=== PATIENT | male | born 1955 | race Caucasian/White ===

== ENCOUNTER 2017-06-23 05:00 | Inpatient (IN) ==
[2017-06-23] MEDS ORDERED: 0.9 % Sodium Chloride 1,000 ML IVC ONE (05:31)
[2017-06-23 06:02] LABS: Basophils # 0.1 K/mcL (0.0-0.2); Basophils % 0.4 %; Eosinophils # 0.7 K/mcL (0.0-0.6); Eosinophils % 4.3 %; Hematocrit 43.6 % (37.5-50.1); Hemoglobin 14.4 g/dL (12.9-16.9); Immature Granulocytes % 0.5 % (0-4); Lymphocytes # 2.4 K/mcL (0.6-4.6); Lymphocytes % 15.6 %; Mean Corpuscular Hemoglobin 29.2 pg (28.0-33.3); Mean Corpuscular Volume 88.4 fL (83.0-100.0); Mean Platelet Volume 8.6 fL (9.4-12.4); Monocytes # 1.4 K/mcL (0.0-1.3); Neutrophils # 10.9 K/mcL (1.6-8.9); Platelet Count 270 K/mcL (140-400); Red Blood Count 4.93 M/mcL (4.19-5.50); Red Cell Distribution Width 13.5 % (11.5-14.5); Segmented Neutrophils % 70.2 %
[2017-06-23 06:24] LABS: BUN/Creatinine Ratio 17 (6-26); Blood Urea Nitrogen 17 mg/dL (8-23); Calcium 9.5 mg/dL (8.6-10.3); Carbon Dioxide 27 mEq/L (23-29); Chloride 102 mEq/L (98-107); Glucose 102 mg/dL (70-105); Osmolality,Calculated 286 (280-300); Potassium 4.1 mEq/L (3.5-5.1); Sodium 137 mEq/L (136-145); eGFR For African Americans > 60 (> 60); eGFR For Non-African Americans > 60 (> 60)
[2017-06-23 06:37] LABS: Bilirubin,Urine Negative (Negative); Blood,Urine Negative (Negative); Clarity,Urine Clear (Clear); Color,Urine Yellow (Yellow); Glucose,Urine (UA) Normal (Normal); Ketones,Urine Negative (Negative); Leukocyte Esterase,Urine Negative (Negative); Nitrite,Urine Negative (Negative); Protein,Urine Negative (Neg-Trace); Specific Gravity,Urine 1.024 (1.010-1.025); Urobilinogen,Urine Normal (Normal)
--- NOTE | 2017-06-23 06:54 | Emergency Department Note ---
Disposition Clinical Impression: Leukocytosis Qualifiers: Leukocytosis type: unspecified Qualified Code(s): D72.829 - Elevated white blood cell count, unspecified Upper respiratory infection Qualifiers: URI type: unspecified URI Qualified Code(s): J06.9 - Acute upper respiratory infection, unspecified Disposition: Admitted As Inpatient Condition: Fair Referrals: Cliff Painting DO [Primary Care Provider] - Forms: ED Satisfaction Letter Time of Disposition: 07:23 URI/Sore Throat HPI - General Chief Complaint: ED Shortness of Breath/Dyspnea Stated Complaint: "think I got pneumonia" Time Seen by Provider: 06/23/17 05:31 Source: patient Limitations: no limitations Nursing Notes Reviewed: Yes Vital Signs Reviewed: Yes - History of Present Illness HPI Narrative: Alert and oriented nontoxic-appearing 61-year-old male presents for complaints of productive cough, chills, rigors, sore throat, and bilateral earache. He states that he has been treated with 2 courses of Augmentin for a sinusitis, finishing his last course 6 days ago. He states this past Saturday, had a spinal stimulator placed by Dr. Teixeira. Dr. Teixeira was aware of this patient's complaints according to the patient. He states he did receive a dose of IV Levaquin in the office at that time. He states that he had noticed a brief period of improvement however symptoms became substantially worse yesterday evening. He denies any chest pain or shortness of breath. He denies any abdominal pain, nausea, vomiting, diarrhea, headache, positional headache, or stiff neck. Pt Subjective Complaint: fever (chills/rigors), cough, sore throat, earache Onset (ago): day(s) (1) Duration: gradually worsening Severity: moderate Improves with: nothing Worsens with: swallowing Associated symptoms: Denies: chest pain, shortness of breath, abdominal pain, nausea, vomiting, diarrhea Treatments prior to arrival: antibiotics - Related Data Home Medications Medication Instructions Recorded Confirmed Aspirin [Adult Low Dose Aspirin EC] 81 mg PO DAILY 04/23/15 12/24/16 Carvedilol [Coreg] 25 mg PO BID 04/23/15 12/24/16 Isosorbide MONOnitrate (24 HR) 30 mg PO DAILY 04/23/15 12/24/16 [Imdur] Lisinopril [Zestril] 40 mg PO DAILY 04/23/15 12/24/16 Simvastatin [Zocor] 40 mg PO HS 04/23/15 12/24/16 HYDROcodone/Acet 10/325 mg [[place] 1 tab PO Q8HR PRN 12/24/16 12/24/16 10-325 mg] Tizanidine HCl [Zanaflex] 4 - 8 mg PO BID PRN 12/24/16 12/24/16 Tramadol HCl [Ultram] 50 mg PO BID PRN 12/24/16 12/24/16 Allergies Allergy/AdvReac Type Severity Reaction Status Date / Time iodine AdvReac See Verified 06/30/15 10:56 Comments shellfish derived AdvReac See Verified 06/30/15 10:56 Comments Sulfa (Sulfonamide AdvReac Itching Verified 04/23/15 11:08 Antibiotics) sulfamethoxazole AdvReac Itching Verified 06/30/15 10:56 [From Bactrim] trimethoprim [From Bactrim] AdvReac Itching Verified 06/30/15 10:56 All systems ED: reviewed and negative except as stated. Review of Systems: As Per HPI Constitutional: Reports: as per HPI, chills, other (rigors). Denies: fever, weakness, weight change Eyes: Denies: eye pain, eye discharge, vision change ENT ED: Reports: as per HPI, ear pain, throat pain. Denies: dental pain, hearing loss, epistaxis, congestion, dysphagia Cardiovascular: Denies: chest pain, palpitations, dyspnea on exertion, edema, syncope Respiratory: Reports: as per HPI, cough, sputum production. Denies: dyspnea, wheezes, hemoptysis, stridor Gastrointestinal: Denies: abdominal pain, nausea, vomiting, diarrhea, constipation, hematemesis, melena, hematochezia Genitourinary: Denies: urgency, dysuria, frequency, hematuria Musculoskeletal: Denies: back pain, neck pain, arthralgia, myalgia Integumentary: Denies: rash, abrasion, lesions Neurological: Denies: headache, weakness, numbness, paresthesias, confusion, abnormal gait, vertigo Psychiatric: Denies: anxiety, depression, suicidal thoughts, homicidal thoughts , auditory hallucinations, visual hallucinations Endocrine: Denies: fatigue Hematological/Lymphatic: Denies: easy bleeding, easy bruising Allergic/Immunologic: Denies: facial swelling, urticaria URI PMH - Past Medical History Medical history: Reports: atrial fibrillation, coronary artery disease, hyperlipidemia, hypertension Psychiatric history: Reports: no psych history - Social History Smoking Status: Former smoker Alcohol use: Reports: none Drug use: Reports: none Physical Exam - General Limitations: no limitations General appearance: alert, in no apparent distress - Head Head exam: atraumatic, normocephalic, normal inspection - Eye Eye exam: Present: normal appearance, PERRL, EOMI. Absent: nystagmus - ENT ENT exam: mucous membranes moist - Expanded ENT Exam External ear exam: Present: normal external inspection, periauricular adenopathy TM/Canal: Hemotympanum: Negative, Erythema: Negative, Bulging: Negative, Effusion: Negative, Perforation: Negative, Loss of Landmarks: Negative, Foreign body: Negative, Cerumen impaction: Negative, Canal discharge: Negative, Canal tenderness: Negative Nose exam: negative: rhinorrhea, sinus tenderness Mouth exam: Present: normal external inspection, tongue normal. Absent: drooling, trismus, lip swelling, tounge swelling Teeth exam: Present: normal inspection Throat exam: Present: normal inspection. Absent: tonsillar erythema, tonsillomegaly, tonsillar exudate, R peritonsillar mass, L peritonsillar mass, muffled voice - Neck Neck exam: Present: normal inspection, full ROM, trachea midline. Absent: lymphadenopathy - Chest Chest inspection: Present: normal inspection, symmetric chest wall rise - Respiratory Respiratory exam: Present: normal lung sounds bilaterally. Absent: respiratory distress, wheezes, stridor, accessory muscle use, prolonged expiratory phase - Cardiovascular Cardiovascular exam: Present: regular rate, normal rhythm, normal heart sounds - Abdominal Exam Abdominal exam: Present: soft, Non-Tender, normal bowel sounds - Extremities Exam Extremities exam: Present: normal inspection, full ROM. Absent: tenderness, pedal edema - Back Exam Back exam: Present: other (Implanted spinal stimulator is noted at the region of the lumbar spine. Primary dressing is place. Primary dressing was removed. Mild amount of serosanguineous drainage is noted on the gauze. Steri-Strips are in place overlying the incision site. No surrounding cellulitis or erythema. No purulent discharge or drainage.) - Neurological Exam Neurological exam: Present: alert, oriented X3 - Psychiatric Psychiatric exam: Present: normal affect, normal mood - Skin Skin exam: Present: warm, dry, intact, normal color. Absent: rash Course Course Narrative: 07: I spoke with Dr. Interiano of the hospitalist service. Dr. Interiano has accepted the patient for admission under his service. He agrees with the administration of Rocephin after blood cultures are obtained. Vital Signs Temperature 97.9 F 06/23/17 05:06 Pulse Rate 63 06/23/17 05:06 Respiratory Rate 18 06/23/17 05:06 Blood Pressure 136/82 06/23/17 05:06 O2 Sat by Pulse Oximetry 95 06/23/17 05:06 Temperature 97.9 F 06/23/17 05:06 Pulse Rate 68 06/23/17 06:51 Respiratory Rate 16 06/23/17 06:51 Blood Pressure 141/72 06/23/17 06:51 O2 Sat by Pulse Oximetry 98 06/23/17 06:51 Oxygen Delivery Oxygen Delivery Room Air Upper Respiratory Infection - MDM Narrative Medical decision making narrative: The patient's workup here has been benign aside from an elevated white blood cell count 15.6. He does look ill and feels warm to touch. Visible rigors upon examination. Continued symptoms are concerning given that the patient has already received 2 courses of Augmentin as well as a dose of IV Levaquin at the [facility]ilatory [facility] office. Also of concern is the fact the patient had a recent surgical intervention but the spinal stimulator placement. I have asked the attending physician Dr. Ferris to evaluate the patient. He agrees that the patient should be admitted to the hospitalist service for further evaluation and observation. The patient is in agreement with this plan. - Medical Records Medical records reviewed: Yes I reviewed the patient's medical records. - Lab Data Lab results reviewed: Yes I reviewed the patient's lab results. Lab results narrative: Laboratory Last Values WBC 15.6 K/mcL (4.3-11.1) H 06/23/17 05:50 RBC 4.93 M/mcL (4.19-5.50) 06/23/17 05:50 Hgb 14.4 g/dL (12.9-16.9) 06/23/17 05:50 Hct 43.6 % (37.5-50.1) 06/23/17 05:50 MCV 88.4 fL (83.0-100.0) 06/23/17 05:50 MCH 29.2 pg (28.0-33.3) 06/23/17 05:50 MCHC 33.0 g/dL (31.6-35.5) 06/23/17 05:50 RDW 13.5 % (11.5-14.5) 06/23/17 05:50 Plt Count 270 K/mcL (140-400) 06/23/17 05:50 MPV 8.6 fL (9.4-12.4) L 06/23/17 05:50 Immature Gran % 0.5 % (0-4) 06/23/17 05:50 Seg Neutrophils % 70.2 % 06/23/17 05:50 Lymphocytes % 15.6 % 06/23/17 05:50 Monocytes % 9.0 % 06/23/17 05:50 Eosinophils % 4.3 % 06/23/17 05:50 Basophils % 0.4 % 06/23/17 05:50 Neutrophils # 10.9 K/mcL (1.6-8.9) H 06/23/17 05:50 Lymphocytes # 2.4 K/mcL (0.6-4.6) 06/23/17 05:50 Monocytes # 1.4 K/mcL (0.0-1.3) H 06/23/17 05:50 Eosinophils # 0.7 K/mcL (0.0-0.6) H 06/23/17 05:50 Basophils # 0.1 K/mcL (0.0-0.2) 06/23/17 05:50 Sodium 137 mEq/L (136-145) 06/23/17 05:50 Potassium 4.1 mEq/L (3.5-5.1) 06/23/17 05:50 Chloride 102 mEq/L (98-107) 06/23/17 05:50 Carbon Dioxide 27 mEq/L (23-29) 06/23/17 05:50 BUN 17 mg/dL (8-23) 06/23/17 05:50 Creatinine 0.99 mg/dL (0.70-1.30) 06/23/17 05:50 Est GFR ( Amer) > 60 (> 60) 06/23/17 05:50 Est GFR (Non-Af Amer) > 60 (> 60) 06/23/17 05:50 BUN/Creatinine Ratio 17 (6-26) 06/23/17 05:50 Glucose 102 mg/dL (70-105) 06/23/17 05:50 Calculated Osmolality 286 (280-300) 06/23/17 05:50 Lactic Acid 1.5 mmol/L (0.5-2.2) 06/23/17 05:50 Calcium 9.5 mg/dL (8.6-10.3) 06/23/17 05:50 Troponin I < 0.03 ng/mL (< 0.04) 06/23/17 05:50 Urine Color Yellow (Yellow) 06/23/17 06:20 Urine Clarity Clear (Clear) 06/23/17 06:20 Urine pH 6.0 pH Units (5.0-8.0) 06/23/17 06:20 Ur Specific [place] 1.024 (1.010-1.025) 06/23/17 06:20 Urine Protein Negative mg/dL (Neg-Trace) 06/23/17 06:20 Urine Glucose (UA) Normal mg/dL (Normal) 06/23/17 06:20 Urine Ketones Negative mg/dL (Negative) 06/23/17 06:20 Urine Blood Negative (Negative) 06/23/17 06:20 Urine Nitrite Negative (Negative) 06/23/17 06:20 Urine Bilirubin Negative (Negative) 06/23/17 06:20 Urine Urobilinogen Normal mg/dL (Normal) 06/23/17 06:20 Ur Leukocyte Esterase Negative (Negative) 06/23/17 06:20 Ur Culture Indicated? NO (NO) 06/23/17 06:20 Result diagrams: 06/23/17 05:50 06/23/17 05:50 Lab Results 06/23/17 06/23/17 06/23/17 Range/Units 05:50 05:50 05:50 WBC 15.6 H (4.3-11.1) K/mcL RBC 4.93 (4.19-5.50) M/mcL Hgb 14.4 (12.9-16.9) g/dL Hct 43.6 (37.5-50.1) % MCV 88.4 (83.0-100.0) fL MCH 29.2 (28.0-33.3) pg MCHC 33.0 (31.6-35.5) g/dL RDW 13.5 (11.5-14.5) % Plt Count 270 (140-400) K/mcL MPV 8.6 L (9.4-12.4) fL Immature Gran % 0.5 (0-4) % Seg Neutrophils % 70.2 % Lymphocytes % 15.6 % Monocytes % 9.0 % Eosinophils % 4.3 % Basophils % 0.4 % Neutrophils # 10.9 H (1.6-8.9) K/mcL Lymphocytes # 2.4 (0.6-4.6) K/mcL Monocytes # 1.4 H (0.0-1.3) K/mcL Eosinophils # 0.7 H (0.0-0.6) K/mcL Basophils # 0.1 (0.0-0.2) K/mcL Sodium 137 (136-145) mEq/L Potassium 4.1 (3.5-5.1) mEq/L Chloride 102 (98-107) mEq/L Carbon Dioxide 27 (23-29) mEq/L BUN 17 (8-23) mg/dL Creatinine 0.99 (0.70-1.30) mg/dL Est GFR ( Amer) > 60 (> 60) Est GFR (Non-Af Amer) > 60 (> 60) BUN/Creatinine Ratio 17 (6-26) Glucose 102 (70-105) mg/dL Calculated Osmolality 286 (280-300) Lactic Acid 1.5 (0.5-2.2) mmol/L Calcium 9.5 (8.6-10.3) mg/dL Troponin I (< 0.04) ng/mL Urine Color (Yellow) Urine Clarity (Clear) Urine pH (5.0-8.0) pH Units Ur Specific [place] (1.010-1.025) Urine Protein (Neg-Trace) mg/dL Urine Glucose (UA) (Normal) mg/dL Urine Ketones (Negative) mg/dL Urine Blood (Negative) Urine Nitrite (Negative) Urine Bilirubin (Negative) Urine Urobilinogen (Normal) mg/dL Ur Leukocyte Esterase (Negative) Ur Culture Indicated? (NO) 06/23/17 06/23/17 Range/Units 05:50 06:20 WBC (4.3-11.1) K/mcL RBC (4.19-5.50) M/mcL Hgb (12.9-16.9) g/dL Hct (37.5-50.1) % MCV (83.0-100.0) fL MCH (28.0-33.3) pg MCHC (31.6-35.5) g/dL RDW (11.5-14.5) % Plt Count (140-400) K/mcL MPV (9.4-12.4) fL Immature Gran % (0-4) % Seg Neutrophils % % Lymphocytes % % Monocytes % % Eosinophils % % Basophils % % Neutrophils # (1.6-8.9) K/mcL Lymphocytes # (0.6-4.6) K/mcL Monocytes # (0.0-1.3) K/mcL Eosinophils # (0.0-0.6) K/mcL Basophils # (0.0-0.2) K/mcL Sodium (136-145) mEq/L Potassium (3.5-5.1) mEq/L Chloride (98-107) mEq/L Carbon Dioxide (23-29) mEq/L BUN (8-23) mg/dL Creatinine (0.70-1.30) mg/dL Est GFR ( Amer) (> 60) Est GFR (Non-Af Amer) (> 60) BUN/Creatinine Ratio (6-26) Glucose (70-105) mg/dL Calculated Osmolality (280-300) Lactic Acid (0.5-2.2) mmol/L Calcium (8.6-10.3) mg/dL Troponin I < 0.03 (< 0.04) ng/mL Urine Color Yellow (Yellow) Urine Clarity Clear (Clear) Urine pH 6.0 (5.0-8.0) pH Units Ur Specific [place] 1.024 (1.010-1.025) Urine Protein Negative (Neg-Trace) mg/dL Urine Glucose (UA) Normal (Normal) mg/dL Urine Ketones Negative (Negative) mg/dL Urine Blood Negative (Negative) Urine Nitrite Negative (Negative) Urine Bilirubin Negative (Negative) Urine Urobilinogen Normal (Normal) mg/dL Ur Leukocyte Esterase Negative (Negative) Ur Culture Indicated? NO (NO) - Radiology Data Radiology results reviewed: Yes I reviewed the patient's radiology results. Chest X-Ray 06/23/17 05:31 IMPRESSION: No acute disease. D/ / Raleigh Trevino MD / Raleigh Trevino MD Interpreting Provider: Raleigh Trevino MD - EKG Data EKG attestation: Yes I reviewed and interpreted this EKG. EKG results narrative: EKG reviewed by Dr. Davison as well. EKG shows sinus rhythm at a rate of 65 bpm. [place] interval 184, QRS duration 103, QT/QTc interval 39/08. No ectopy noted. No STEMI.
--- NOTE | 2017-06-23 07:28 | Emergency Department Note ---
START Narrative - START START: I examined this patient and my medical decision-making was reviewed with the emergency medicine resident. I agree with the documented findings, disposition and treatment plan as described except to the extent set forth below. Patient seen with [facility] [employer]ER CLEMENTE MICHAEL, Please see a copy of his note for details of the H&P, ED evaluation, management and disposition. I have independently evaluated the patient and confirmed appropriate portions of the history and physical exam. BRIEFLY: Pt s/p 2 courses outpt Augmentin for reported sinusitis. Had spinal stimulator placed this past Saturday & given one dose IV levaquine (per pt). Pt has worsening Sx's of myalgias, aches , chills and malaise. ED work-up negative except WBC 15K. CXR read as NAD. Due to persistent Sx's pt will be admitted fopr further observation & Tx.
[2017-06-23] MEDS ORDERED: cefTRIAXone 1,000 MG in Water for inj. (sterile) 20 ML 10 ML IVP ONE (07:45)
[2017-06-23] MEDS ORDERED: Ondansetron 4 MG/2 ML VIAL ONE (07:52)
[2017-06-23] MEDS ORDERED: Ondansetron 4 MG/2 ML VIAL IVP ONE (07:58)
[2017-06-23] MEDS ORDERED: Acetaminophen 325 MG TABLET PO ONE (07:59)
[2017-06-23] MEDS ORDERED: *HR* FentaNYL (PF) 100 MCG/2 ML VIAL IVP ONE (07:59)
--- NOTE | 2017-06-23 08:55 | Internal Med History&Physical ---
Date of Encounter: 06/23/17 Time of Encounter: 08:54 Assessment and Plan (1) Upper respiratory infection Current visit: Yes Status: Acute Patient has viral URI versus bacterial pharyngitis, versus bacterial sinusitis. We will check rapid strep test. We will check viral upper respiratory panel. We will follow-up blood cultures to rule out a more serious bacterial infection. We will continue with IV ceftriaxone empirically. Monitor temperature curve and WBC trend. Qualifiers: URI type: unspecified viral URI Qualified Code(s): J06.9 - Acute upper respiratory infection, unspecified (2) Essential hypertension Current visit: Yes Status: Acute Continue with lisinopril and carvedilol. (3) Hyperlipidemia Current visit: Yes Status: Acute Continue with simvastatin. Qualifiers: Hyperlipidemia type: unspecified Qualified Code(s): E78.5 - Hyperlipidemia , unspecified (4) Leukocytosis Current visit: Yes Status: Acute Could be secondary to viral URI versus bacterial infection. There is no evidence of sepsis. We will trend WBC count and follow-up blood cultures. Qualifiers: Leukocytosis type: unspecified Qualified Code(s): D72.829 - Elevated white blood cell count, unspecified (5) Lumbar radiculitis Current visit: No Status: Acute Continue home pain medication regimen. (6) DVT prophylaxis Current visit: Yes Status: Acute Encourage ambulation. Internal Medicine - H&P: HPI Chief complaint: Shortness of breath Admitted From: Emergency Dept Plans for Post Hospital Care: Home History of present illness: Mr. Mendez is a 61 year old male with past medical history significant for hypertension who presented to the hospital for evaluation of subjective fevers and chills and sinus congestion. He says he has been having recurrent sinus infections since February. Over the last month he completed 2 courses of Augmentin and last week he had 1 dose of IV Levaquin. He had a spinal stimulator implanted 5 days ago. Reports some soreness of his lower back but no drainage or bleeding. This morning he had severe sore throat cough productive of yellow sputum and subjective fevers. Workup done in the emergency department included a chest x-ray which was negative. White blood cell count was elevated. Lactic acid was normal. He was given 1 dose of ceftriaxone and referred for admission. A 10 point review of systems was negative except as stated above. Family history positive for history of CT in the patient's father at age 54. Social history: Nonsmoker, chews tobacco, denies alcohol and drug abuse. Past Med Surg Social Fam HX - Past Medical History Medical history: atrial fibrillation, coronary artery disease, hyperlipidemia, hypertension Psychiatric history: no psych history - Social History Smoking Status: Former smoker Smokeless Tobacco Status: Yes Alcohol use: none Drug use: none Internal Medicine - H&P: Meds Aspirin [Adult Low Dose Aspirin EC] 81 mg PO DAILY 04/23/15 [History] Carvedilol [Coreg] 25 mg PO BID 04/23/15 [History] Isosorbide MONOnitrate (24 HR) [Imdur] 30 mg PO DAILY 04/23/15 [History] Lisinopril [Zestril] 40 mg PO DAILY 04/23/15 [History] Simvastatin [Zocor] 40 mg PO HS 04/23/15 [History] HYDROcodone/Acet 10/325 mg [[place] 10-325 mg] 1 tab PO Q8HR PRN 12/24/16 [History ] Tizanidine HCl [Zanaflex] 4 - 8 mg PO BID PRN 12/24/16 [History] Tramadol HCl [Ultram] 50 mg PO BID PRN 12/24/16 [History] 3 Allergy/AdvReac Type Severity Reaction Status Date / Time iodine AdvReac See Verified 06/30/15 10:56 Comments shellfish derived AdvReac See Verified 06/30/15 10:56 Comments Sulfa (Sulfonamide AdvReac Itching Verified 04/23/15 11:08 Antibiotics) sulfamethoxazole AdvReac Itching Verified 06/30/15 10:56 [From Bactrim] trimethoprim [From Bactrim] AdvReac Itching Verified 06/30/15 10:56 All Systems PM: A 10-system review of systems was performed and is negative for pertinent findings except as documented above in the HPI. - Constitutional Vitals: Temp Pulse Resp BP Pulse Ox 100.2 F H 68 18 162/73 98 06/23/17 07:56 06/23/17 06:51 06/23/17 08:18 06/23/17 08:18 06/23/17 06:51 General appearance: Present: A&O X 3, no acute distress, answers questions appropriately - ENT ENT exam: Present: normal external ear exam, normal oropharynx - Neck Neck exam general surgery: Present: supple, trachea midline. Absent: lymphadenopathy - Respiratory Respiratory exam: Present: CTAB. Absent: accessory muscle use, rales, rhonchi, wheezes - Cardiovascular Cardiovascular exam: Present: RRR, +S1, +S2. Absent: diastolic murmur, gallop, rubs, systolic murmur - GI/Abdominal GI/Abdominal exam: Present: normal bowel sounds, soft, no peritoneal signs. Absent: distended, tenderness - Extremities Exam Extremities exam: Present: warm, radial pulses palpable and symmetrical. Absent : calf tenderness, cyanotic, pedal edema - Back Exam Additional comments: Lower back surgical site covered with surgical dressing clean dry and intact, mild tenderness to palpation. No skin changes surrounding the surgical site. - Neurological Exam Neurological exam: Present: CN II-XII intact, oriented X3, no focal deficits. Absent: pronater drift, facial droop, speech deficit - Skin Skin exam: Present: dry, intact Internal Med - H&P Results - Labs CBC & Chem 7: 06/23/17 05:50 06/23/17 05:50
[2017-06-23] MEDS ORDERED: Naloxone 0.4 MG/ML INJ IVP PRN (09:33)
[2017-06-23] MEDS ORDERED: Acetaminophen 325 MG TABLET PO PRN (09:33)
[2017-06-23] MEDS ORDERED: traMADol 50 MG TABLET PO PRN (10:55)
[2017-06-23] MEDS ORDERED: Aspirin Enteric Coated 81 MG Tablet PO SCH (11:00)
[2017-06-23 12:48] LABS: Adenovirus Not Detected (Not Detect); Bordetella Pertussis Not Detected (Not Detect); Chlamydophila pneumoniae Not Detected (Not Detect); Coronavirus 229E Not Detected (Not Detect); Coronavirus HKU1 Not Detected (Not Detect); Coronavirus NL63 Not Detected (Not Detect); Coronavirus OC43 Not Detected (Not Detect); Human Metapneumovirus Not Detected (Not Detect); Human Rhinovirus/Enterovirus Not Detected (Not Detect); Influenza A Subtype 2009 H1 Not Detected (Not Detect); Influenza A Untypeable Not Detected (Not Detect); Influenza B Not Detected (Not Detect); Mycoplasma pneumoniae Not Detected (Not Detect); Parainfluenza Virus 1 Not Detected (Not Detect); Parainfluenza Virus 2 Not Detected (Not Detect); Parainfluenza Virus 3 Not Detected (Not Detect); Parainfluenza Virus 4 Not Detected (Not Detect); Respiratory Syncytial Virus Not Detected (Not Detect)
[2017-06-23] MEDS: Lisinopril 20 MG TABLET PO SCH (12:49)
[2017-06-23] MEDS: *HR* HYDROcodone/Acet 10/325 mg TABLET PO PRN ×2 (12:49→20:34)
[2017-06-23] MEDS ORDERED: tiZANidine 4 MG TABLET PO SCH (21:00)
[2017-06-24] MEDS: *HR* HYDROcodone/Acet 10/325 mg TABLET PO PRN ×2 (06:45→12:50)
[2017-06-24 06:58] LABS: Basophils # 0.1 K/mcL (0.0-0.2); Basophils % 0.5 %; Eosinophils # 0.8 K/mcL (0.0-0.6); Eosinophils % 8.1 %; Hematocrit 43.7 % (37.5-50.1); Hemoglobin 14.6 g/dL (12.9-16.9); Immature Granulocytes % 0.4 % (0-4); Lymphocytes # 2.2 K/mcL (0.6-4.6); Lymphocytes % 23.7 %; Mean Corpuscular HGB Conc 33.4 g/dL (31.6-35.5); Mean Corpuscular Volume 86.9 fL (83.0-100.0); Mean Platelet Volume 9.1 fL (9.4-12.4); Monocytes # 1.3 K/mcL (0.0-1.3); Monocytes % 14.1 %; Platelet Count 251 K/mcL (140-400); Red Blood Count 5.03 M/mcL (4.19-5.50); Red Cell Distribution Width 13.6 % (11.5-14.5); Segmented Neutrophils % 53.2 %
[2017-06-24] MEDS ORDERED: cefTRIAXone 2,000 MG in Water for inj. (sterile) 20 ML IVP SCH (08:00)
[2017-06-24] MEDS ORDERED: Isosorbide MONOnitrate (24 HR) 30 MG TAB.ER.24H PO SCH (09:00)
[2017-06-24] MEDS: Lisinopril 20 MG TABLET PO SCH (09:10)
[2017-06-24] MEDS ORDERED: Bacitracin/PolymyxinB OINT 14.17 GM TUBE TP SCH (11:30)
--- NOTE | 2017-06-24 15:35 | Discharge Summary ---
Date of Encounter: 06/24/17 Time of Encounter: 15:31 - Discharge Diagnosis (1) Acute bacterial sinusitis Priority: Primary Status: Acute Comments: hx sinus surgery. Presented with subjective fevers, chills and sinus congestion. He was treated outpatient with 2 rounds of Augmentin per PCP for sinusitis. Sinus CT with acute bilateral maxillary sinusitis superimposed on chronic bilateral maxillary and ethmoid sinusitis. Discharge home on Levaquin. Recommend follow-up with PCP within 1-2 weeks. (2) Essential hypertension Priority: Secondary Status: Chronic Comments: per hx. BP controlled. Cont home BP medications (3) Lumbar radiculitis Priority: Secondary Status: Chronic Comments: per hx. Had pain pump placed outpatient. Pump removed per Dr. Chun on 06/24. Follow-up out patient as previously planned - Discharge Medications Prescriptions: Levofloxacin [Levaquin] 500 mg PO DAILY #7 tablet Home Medications: Aspirin [Adult Low Dose Aspirin EC] 81 mg PO DAILY 04/23/15 [History] Carvedilol [Coreg] 25 mg PO BID 04/23/15 [History] Isosorbide MONOnitrate (24 HR) [Imdur] 30 mg PO DAILY 04/23/15 [History] Lisinopril [Zestril] 40 mg PO DAILY 04/23/15 [History] Simvastatin [Zocor] 40 mg PO HS 04/23/15 [History] Tizanidine HCl [Zanaflex] 8 mg PO HS 12/24/16 [History] Tramadol HCl [Ultram] 50 mg PO BID PRN 12/24/16 [History] Oxycodone HCl/Acetaminophen [Percocet 10-325 mg Tablet] 1 tab PO Q6H PRN [History] amLODIPine [Norvasc] 5 mg PO DAILY 06/23/17 [History] Levofloxacin [Levaquin] 500 mg PO DAILY #7 tablet 06/24/17 [Rx] Allergies/Adverse Reactions: 3 Allergy/AdvReac Type Severity Reaction Status Date / Time iodine AdvReac See Verified 06/30/15 10:56 Comments shellfish derived AdvReac See Verified 06/30/15 10:56 Comments Sulfa (Sulfonamide AdvReac Itching Verified 04/23/15 11:08 Antibiotics) sulfamethoxazole AdvReac Itching Verified 06/30/15 10:56 [From Bactrim] trimethoprim [From Bactrim] AdvReac Itching Verified 06/30/15 10:56 Procedures/tests Complete & Pending: Procedures Performed prior 72 hours Category Date Time Status CT sinus wo con [CT] Routine Cat Scan 06/24/17 13:00 Draft Date of admission: 06/23/17 07:56 Primary care physician: Cliff Painting DO Discharging clinician: Yuliya Fatima Anticipated date of discharge: 06/24/17 - Patient Status Disposition: Home, Self-Care Condition: Good Functional capacity at discharge: independent ambulation Overall status at discharge: patient is back to baseline - Discharge Instructions Instructions: Sinusitis (GEN), Levofloxacin (By mouth) Follow Up With: Cliff Painting DO [Primary Care Provider] - Mima Langston DO [Non-Partnered Physician] - (Please call in 2 weeks to request an appointment if you have not heard from office) - Diet and Activity Activity: increase activity as tolerated Diet: advance to your usual diet Interval History: Seen and examined at bedside. Patient is new to me. Information obtained from chart review and patient report. Patient says he feels significantly improved and wants to discharge home today. The pain pump upon arrival which was removed after [place]. Hospital course: See assessment and plan for hospital course - Time Spent with Patient Total time spent providing and/or coordinating discharge services: - Constitutional Vitals: Temp Pulse Resp BP Pulse Ox 98 F 59 16 120/61 92 06/24/17 12:12 06/24/17 12:12 06/24/17 12:12 06/24/17 12:12 06/24/17 12:12 General appearance: Present: A&O X 3, morbidly obese, no acute distress, answers questions appropriately - Head Head exam: Present: atraumatic, normocephalic - Eye Eye exam: Present: PERRL, conjuntiva pink, sclera anicteric Pupils: Present: PERRL - Neck Neck exam general surgery: Present: supple, trachea midline. Absent: lymphadenopathy - Respiratory Respiratory exam: Present: CTAB. Absent: accessory muscle use, rales, rhonchi, wheezes - Cardiovascular Cardiovascular exam: Present: RRR, +S1, +S2. Absent: diastolic murmur, gallop, rubs, systolic murmur - GI/Abdominal GI/Abdominal exam: Present: normal bowel sounds, soft, no peritoneal signs. Absent: distended, tenderness - Extremities Exam Extremities exam: Present: warm, radial pulses palpable and symmetrical. Absent : calf tenderness, cyanotic, pedal edema - Neurological Exam Neurological exam: Present: CN II-XII intact, oriented X3, no focal deficits. Absent: pronater drift, facial droop, speech deficit - Skin Skin exam: Present: dry, intact
[2017-06-24 15:56] VITALS: BP 106/60
--- NOTE | 2017-06-28 09:15 | Electrocardiograph Report ---
[place] [id number] Test Date: 2017-06-23 Pat Name: Roc Mendez Department: 104 Room: 3B43 Gender: M Heddler: MELISSA : 1955 Requested By: Randi Terrell Order Number: [id number] MD: Mark Vargas DO Measurements Intervals [place] Rate: 65 P: 72 SD: 184 QRS: -7 QRSD: 103 T: 17 QT: 396 QTc: 408 Interpretive Statements SINUS RHYTHM MODERATE VOLTAGE CRITERIA FOR LVH, CONSIDER NORMAL VARIANT Electronically Signed On 06-28-2017 9:13:23 EST by Mark Vargas DO
== END 2017-06-24 17:15 | disposition home or self-care (01) | DRG 153 ==
LOC: 3BNU 05:00 → EMEROO 05:00 → 3BNU 08:28
PROVIDERS: ADMIT Internal Medicine; ATTEND Registered Nurse

== ENCOUNTER 2018-11-02 10:15 | Inpatient (IN) ==
[2018-11-02] MEDS ORDERED: 0.9 % Sodium Chloride 1,000 ML IVC ONE (10:32)
[2018-11-02] MEDS ORDERED: Isovue-370 500 ML BOTTLE IVP ONE ×2 (10:34→10:35)
--- NOTE | 2018-11-02 10:38 | Emergency Department Note ---
Disposition Clinical Impression: Altered mental status Pneumonia Qualifiers: Pneumonia type: due to unspecified organism Laterality: bilateral Lung locatio n: lower lobe of lung Qualified Code(s): J18.1 - Lobar pneumonia, unspecified organism Disposition: Admitted As Inpatient Condition: Good Referrals: Cliff Painting DO [Primary Care Provider] - Forms: ED Satisfaction Letter Time of Disposition: 14:44 Altered Mental Status HPI - General Chief Complaint: ED Altered Mental Status Stated Complaint: SOB Time Seen by Provider: 11/02/18 10:19 Source: patient Mode of arrival: ambulatory Limitations: altered mental status Nursing Notes Reviewed: Yes Vital Signs Reviewed: Yes - History of Present Illness HPI Narrative: Patient presents to the emergency department complaining of shortness of breath. states that he has been confused. Patient states he is unaware of how he got here. Patient does appear confused. states that the confusion started last night. However he was in bed all day yesterday. Patient's only complaint of shortness of breath and back pain. States he has chronic back pain. Does have hardware in his back he is supposed to have removed. This appears to be a nerve stimulator. Patient does have a history of several abdominal surgeries including hernia repair. He cannot provide any further on that. He denies any chest pain. Denies any cough. Patient is confused on exam. He is moving all 4 extremities grossly. He is able to stand. He states he will be able to give us a urine sample however he frequently is stating he does not know how he got here. No facial drooping noted. No history of stroke. - Related Data Home Medications Medication Instructions Recorded Confirmed Carvedilol [Coreg] 25 mg PO BID 04/23/15 11/02/18 Lisinopril [Zestril] 40 mg PO DAILY 04/23/15 11/02/18 Simvastatin [Zocor] 40 mg PO HS 04/23/15 11/02/18 Oxycodone HCl/Acetaminophen 1 tab PO Q6H PRN 06/23/17 11/02/18 [Percocet 10-325 mg Tablet] amLODIPine [Norvasc] 5 mg PO DAILY 06/23/17 11/02/18 DULoxetine [Cymbalta] 30 mg PO DAILY 06/03/18 11/02/18 Methotrexate [Otrexup] 8 tab PO QWEEK 06/03/18 11/02/18 Aspirin [Lo-Dose Aspirin EC] 81 mg PO DAILY 11/02/18 11/02/18 BuPROPion [Wellbutrin] 75 mg PO BID 11/02/18 11/02/18 Allergies Allergy/AdvReac Type Severity Reaction Status Date / Time iodine AdvReac Itching Verified 11/02/18 12:57 shellfish derived AdvReac Tongue Verified 11/02/18 12:57 itching Sulfa (Sulfonamide AdvReac Itching Verified 11/02/18 12:57 Antibiotics) sulfamethoxazole AdvReac Itching Verified 11/02/18 12:57 [From Bactrim] trimethoprim [From Bactrim] AdvReac Itching Verified 11/02/18 12:57 All systems ED: reviewed and negative except as stated. Constitutional: Denies: fever Cardiovascular: Denies: chest pain Respiratory: Reports: dyspnea Gastrointestinal: Denies: abdominal pain, nausea, vomiting, diarrhea Musculoskeletal: Reports: back pain Past Medical History - Past Medical History Attestation: Yes The following information was validated with the patient. Source: patient Medical history: Reports: atrial fibrillation, coronary artery disease, hyperlipidemia, hypertension Psychiatric history: Reports: no psych history - Social History Smoking Status: Never smoker Smokeless Tobacco Status: Yes Alcohol use: Reports: none Drug use: Reports: none Physical Exam - General Limitations: altered mental status General appearance: alert, anxious - Head Head exam: atraumatic, normocephalic, normal inspection - Eye Eye exam: Present: EOMI, other (Pinpoint pupils bilaterally.). Absent: scleral icterus - ENT ENT exam: normal exam, normal oropharynx, mucous membranes moist - Neck Neck exam: Present: normal inspection, full ROM, trachea midline - Chest Chest inspection: Present: normal inspection, symmetric chest wall rise - Respiratory Respiratory exam: Present: normal lung sounds bilaterally. Absent: respiratory distress, accessory muscle use - Cardiovascular Cardiovascular exam: Present: regular rate, normal rhythm, systolic murmur - Abdominal Exam Abdominal exam: Present: soft, Non-Tender, scar (Midline.). Absent: tenderness, distention, guarding, rebound, rigidity, organomegaly, Morrison's sign, Rovsing's sign, tenderness at McBurney's Point - Extremities Exam Extremities exam: Present: normal inspection, full ROM, normal capillary refill. Absent: tenderness, pedal edema, calf tenderness - Back Exam Back exam: Present: normal inspection, full ROM. Absent: tenderness - Neurological Exam Neurological exam: Present: alert, CN II-XII intact - Psychiatric Psychiatric exam: Present: normal affect, normal mood - Skin Skin exam: Present: warm, dry, intact, normal color. Absent: rash, cyanosis, diaphoresis Course Course Narrative: Patient with pupils that are pinpoint. He is confused. Does not appear to be in gross distress at this time. Lung sounds are clear abdomen is soft. Patient was found to be febrile however. With an altered mental status and febrile we are concerned for possible meningitis. We did contact: [facility] and they came down to do an LP under fluoroscopy secondary to the patient having a nerve stimulator in his back with previous back surgeries. They did ask us to withhold antibiotic since they were able to get here next he did not know the time frame. This is reasonable. We did provide patient with Tylenol. Patient does take Percocet chronically for low back pain. With his confusion and pinpoint pupils I was concerned that he possibly had taken too much of his medication. He was given Narcan. He did make the patient arouse somewhat more however he was still confused. We did do a CTA of his head neck and chest to rule out dissection because he was complaining of the shortness of breath and was confused. The CTA of his neck did show some decrease in the contrast flowed on one side. Radiologist called us to discuss this with us. He is concerned for possible artifact versus a thrombus. Patient currently has no focal deficits. He is moving all 4 extremities well. Equally. There is no cranial nerve deficits. Is no drooping to his face. We will admit patient to the hospital pending CSF cultures. I did make him aware that they are still pending at this time. I discussed this at length with the patient and his family. - Consultations Consultation #1[facility] to do the LP on the patient. Time: 11:30 Vital Signs Temperature 103.0 F H 11/02/18 10:43 Pulse Rate 94 11/02/18 10:43 Respiratory Rate 24 11/02/18 10:43 Blood Pressure 146/114 11/02/18 10:43 O2 Sat by Pulse Oximetry 93 11/02/18 10:43 Temperature 99.8 F H 11/02/18 14:33 Pulse Rate 94 11/02/18 14:33 Respiratory Rate 20 11/02/18 14:33 Blood Pressure 149/65 11/02/18 14:33 O2 Sat by Pulse Oximetry 97 11/02/18 14:33 Oxygen Delivery Oxygen Delivery Room Air Altered Mental Status - Medical Records Medical records reviewed: Yes I reviewed the patient's medical records. - Lab Data Lab results reviewed: Yes I reviewed the patient's lab results. Result diagrams: 11/02/18 10:40 11/02/18 10:40 Lab Results 11/02/18 11/02/18 11/02/18 Range/Units 10:40 10:40 10:40 WBC 17.1 H (4.3-11.1) K/mcL RBC 4.38 (4.19-5.50) M/mcL Hgb 13.5 (12.9-16.9) g/dL Hct 40.1 (37.5-50.1) % MCV 91.6 (83.0-100.0) fL MCH 30.8 (28.0-33.3) pg MCHC 33.7 (31.6-35.5) g/dL RDW 13.1 (11.5-14.5) % Plt Count 265 (140-400) K/mcL MPV 8.8 L (9.4-12.4) fL Immature Gran % 0.4 (0-4) % Seg Neutrophils % 82.1 % Lymphocytes % 7.9 % Monocytes % 8.9 % Eosinophils % 0.5 % Basophils % 0.2 % Neutrophils # 14.0 H (1.6-8.9) K/mcL Lymphocytes # 1.4 (0.6-4.6) K/mcL Monocytes # 1.5 H (0.0-1.3) K/mcL Eosinophils # 0.1 (0.0-0.6) K/mcL Basophils # 0.0 (0.0-0.2) K/mcL PT 11.4 (9.4-12.1) Seconds INR 1.0 APTT 33.6 (26.0-36.0) Seconds Sodium 137 (136-145) mEq/L Potassium 5.4 H (3.5-5.1) mEq/L Chloride 105 (98-107) mEq/L Carbon Dioxide 23 (23-29) mEq/L BUN 32 H (8-23) mg/dL Creatinine 1.35 H (0.70-1.30) mg/dL Est GFR ( Amer) > 60 (> 60) Est GFR (Non-Af Amer) 54 L (> 60) BUN/Creatinine Ratio 24 (6-26) Glucose 125 H (70-105) mg/dL Calculated Osmolality 292 (280-300) Lactic Acid (0.5-2.2) mmol/L Calcium 9.4 (8.6-10.3) mg/dL Phosphorus 2.8 (2.7-4.5) mg/dL Magnesium 2.2 (1.6-2.6) mg/dL Total Bilirubin 0.7 (0.3-1.0) mg/dL Direct Bilirubin 0.1 (0.0-0.2) mg/dL Indirect Bilirubin 0.6 (0.0-1.2) mg/dL AST 23 (13-39) Units/L ALT 23 (7-52) Units/L Alkaline Phosphatase 63 (34-104) Units/L Ammonia (16-53) mcmol/L Creatine Kinase 227 H (30-223) Units/L Troponin I < 0.03 (< 0.04) ng/mL Serum Total Protein 7.6 (6.4-8.9) g/dL Albumin 4.6 (3.5-5.7) g/dL Globulin 3.0 (2.4-3.5) g/dL Albumin/Globulin Ratio 1.5 (1.1-2.2) Amylase 52 (29-103) Units/L Lipase 21 (11-82) Units/L TSH 0.224 L (0.340-5.600) mcIU/mL Urine Color (Yellow) Urine Clarity (Clear) Urine pH (5.0-8.0) pH Units Ur Specific Equality (1.010-1.025) Urine Protein (Neg-Trace) mg/dL Urine Glucose (UA) (Normal) mg/dL Urine Ketones (Negative) mg/dL Urine Blood (Negative) Urine Nitrite (Negative) Urine Bilirubin (Negative) Urine Urobilinogen (Normal) mg/dL Ur Leukocyte Esterase (Negative) Ur Culture Indicated? (NO) Urine Opiates Screen (Egfzad=101) ng/mL Ur Buprenorphine Scrn (Cutoff=5) ng/mL Ur Barbiturates Screen (Jbwqsa=408) ng/mL Ur Phencyclidine Scrn (Cutoff=25) ng/mL Ur Amphetamines Screen (Xhbcca=8749) ng/mL U Benzodiazepines Scrn (Ngdepj=677) ng/mL Urine Cocaine Screen (Cutoff= 300) ng/mL U Marijuana (THC) Screen (Cutoff = 50) ng/mL Ur Drug Screen Interp Ethyl Alcohol < 10 (Less than 10) mg/dL Specimen Rejected 11/02/18 11/02/18 11/02/18 Range/Units 10:40 10:40 10:50 WBC (4.3-11.1) K/mcL RBC (4.19-5.50) M/mcL Hgb (12.9-16.9) g/dL Hct (37.5-50.1) % MCV (83.0-100.0) fL MCH (28.0-33.3) pg MCHC (31.6-35.5) g/dL RDW (11.5-14.5) % Plt Count (140-400) K/mcL MPV (9.4-12.4) fL Immature Gran % (0-4) % Seg Neutrophils % % Lymphocytes % % Monocytes % % Eosinophils % % Basophils % % Neutrophils # (1.6-8.9) K/mcL Lymphocytes # (0.6-4.6) K/mcL Monocytes # (0.0-1.3) K/mcL Eosinophils # (0.0-0.6) K/mcL Basophils # (0.0-0.2) K/mcL PT (9.4-12.1) Seconds INR APTT (26.0-36.0) Seconds Sodium (136-145) mEq/L Potassium (3.5-5.1) mEq/L Chloride (98-107) mEq/L Carbon Dioxide (23-29) mEq/L BUN (8-23) mg/dL Creatinine (0.70-1.30) mg/dL Est GFR ( Amer) (> 60) Est GFR (Non-Af Amer) (> 60) BUN/Creatinine Ratio (6-26) Glucose (70-105) mg/dL Calculated Osmolality (280-300) Lactic Acid 1.3 (0.5-2.2) mmol/L Calcium (8.6-10.3) mg/dL Phosphorus (2.7-4.5) mg/dL Magnesium (1.6-2.6) mg/dL Total Bilirubin (0.3-1.0) mg/dL Direct Bilirubin (0.0-0.2) mg/dL Indirect Bilirubin (0.0-1.2) mg/dL AST (13-39) Units/L ALT (7-52) Units/L Alkaline Phosphatase (34-104) Units/L Ammonia (16-53) mcmol/L Creatine Kinase (30-223) Units/L Troponin I (< 0.04) ng/mL Serum Total Protein (6.4-8.9) g/dL Albumin (3.5-5.7) g/dL Globulin (2.4-3.5) g/dL Albumin/Globulin Ratio (1.1-2.2) Amylase (29-103) Units/L Lipase (11-82) Units/L TSH (0.340-5.600) mcIU/mL Urine Color Yellow (Yellow) Urine Clarity Clear (Clear) Urine pH 5.5 (5.0-8.0) pH Units Ur Specific Equality 1.018 (1.010-1.025) Urine Protein Negative (Neg-Trace) mg/dL Urine Glucose (UA) Normal (Normal) mg/dL Urine Ketones Negative (Negative) mg/dL Urine Blood Negative (Negative) Urine Nitrite Negative (Negative) Urine Bilirubin Negative (Negative) Urine Urobilinogen Normal (Normal) mg/dL Ur Leukocyte Esterase Negative (Negative) Ur Culture Indicated? NO (NO) Urine Opiates Screen (Uxqtte=171) ng/mL Ur Buprenorphine Scrn (Cutoff=5) ng/mL Ur Barbiturates Screen (Nkzojt=433) ng/mL Ur Phencyclidine Scrn (Cutoff=25) ng/mL Ur Amphetamines Screen (Enkamk=5942) ng/mL U Benzodiazepines Scrn (Ovjhre=030) ng/mL Urine Cocaine Screen (Cutoff= 300) ng/mL U Marijuana (THC) Screen (Cutoff = 50) ng/mL Ur Drug Screen Interp Ethyl Alcohol (Less than 10) mg/dL Specimen Rejected Accident 11/02/18 11/02/18 Range/Units 10:50 12:29 WBC (4.3-11.1) K/mcL RBC (4.19-5.50) M/mcL Hgb (12.9-16.9) g/dL Hct (37.5-50.1) % MCV (83.0-100.0) fL MCH (28.0-33.3) pg MCHC (31.6-35.5) g/dL RDW (11.5-14.5) % Plt Count (140-400) K/mcL MPV (9.4-12.4) fL Immature Gran % (0-4) % Seg Neutrophils % % Lymphocytes % % Monocytes % % Eosinophils % % Basophils % % Neutrophils # (1.6-8.9) K/mcL Lymphocytes # (0.6-4.6) K/mcL Monocytes # (0.0-1.3) K/mcL Eosinophils # (0.0-0.6) K/mcL Basophils # (0.0-0.2) K/mcL PT (9.4-12.1) Seconds INR APTT (26.0-36.0) Seconds Sodium (136-145) mEq/L Potassium (3.5-5.1) mEq/L Chloride (98-107) mEq/L Carbon Dioxide (23-29) mEq/L BUN (8-23) mg/dL Creatinine (0.70-1.30) mg/dL Est GFR ( Amer) (> 60) Est GFR (Non-Af Amer) (> 60) BUN/Creatinine Ratio (6-26) Glucose (70-105) mg/dL Calculated Osmolality (280-300) Lactic Acid (0.5-2.2) mmol/L Calcium (8.6-10.3) mg/dL Phosphorus (2.7-4.5) mg/dL Magnesium (1.6-2.6) mg/dL Total Bilirubin (0.3-1.0) mg/dL Direct Bilirubin (0.0-0.2) mg/dL Indirect Bilirubin (0.0-1.2) mg/dL AST (13-39) Units/L ALT (7-52) Units/L Alkaline Phosphatase (34-104) Units/L Ammonia 61 H (16-53) mcmol/L Creatine Kinase (30-223) Units/L Troponin I (< 0.04) ng/mL Serum Total Protein (6.4-8.9) g/dL Albumin (3.5-5.7) g/dL Globulin (2.4-3.5) g/dL Albumin/Globulin Ratio (1.1-2.2) Amylase (29-103) Units/L Lipase (11-82) Units/L TSH (0.340-5.600) mcIU/mL Urine Color (Yellow) Urine Clarity (Clear) Urine pH (5.0-8.0) pH Units Ur Specific Equality (1.010-1.025) Urine Protein (Neg-Trace) mg/dL Urine Glucose (UA) (Normal) mg/dL Urine Ketones (Negative) mg/dL Urine Blood (Negative) Urine Nitrite (Negative) Urine Bilirubin (Negative) Urine Urobilinogen (Normal) mg/dL Ur Leukocyte Esterase (Negative) Ur Culture Indicated? (NO) Urine Opiates Screen Positive H (Wrvxod=964) ng/mL Ur Buprenorphine Scrn Negative (Cutoff=5) ng/mL Ur Barbiturates Screen Negative (Rvztnn=903) ng/mL Ur Phencyclidine Scrn Negative (Cutoff=25) ng/mL Ur Amphetamines Screen Negative (Epqgqh=7194) ng/mL U Benzodiazepines Scrn Negative (Kzunct=085) ng/mL Urine Cocaine Screen Negative (Cutoff= 300) ng/mL U Marijuana (THC) Screen Negative (Cutoff = 50) ng/mL Ur Drug Screen Interp See Below Ethyl Alcohol (Less than 10) mg/dL Specimen Rejected - Radiology Data Radiology results reviewed: Yes I reviewed the patient's radiology results. CT Dissection 11/02/18 10:34 IMPRESSION: No acute aortic abnormality. Basilar predominant airspace disease including ground-glass opacity, not well characterized due to obscuration by motion artifact. Findings could represent pneumonia or edema. Moderate fatty infiltration of the liver D/ / Marzena Mcghee Cha, MD / Marzena Mcghee Cha, MD Interpreting Provider: Marzena Mcghee Cha, MD Angiography CT 11/02/18 10:35 IMPRESSION: No acute intracranial abnormality. Question of asymmetrically decreased contrast opacification in distal cavernous segment of the right internal carotid artery, with patent supraclinoid segment. Findings may be related to artifacts. Focal nonocclusive thrombus in the distal right cavernous internal carotid artery cannot be excluded. Repeat CTA of the head may be beneficial if the patient not able to obtain MRA of the head. No acute abnormality or flow-limiting stenosis in the remainder of the major arteries of the head. 50% focal stenosis in the proximal right internal carotid artery. 30% focal stenosis in the proximal left internal carotid artery. Reticulonodular changes in the right upper lobe, may be related minimal pulmonary vascular congestion versus infection/inflammation. Results were reported to Dr. Bobby at 12:03 p.m. on November 02, 2018. D/ / Piter Marion MD / Piter Marion MD Interpreting Provider: Piter Marion MD Neck CTA 11/02/18 10:35 IMPRESSION: No acute intracranial abnormality. Question of asymmetrically decreased contrast opacification in distal cavernous segment of the right internal carotid artery, with patent supraclinoid segment. Findings may be related to artifacts. Focal nonocclusive thrombus in the distal right cavernous internal carotid artery cannot be excluded. Repeat CTA of the head may be beneficial if the patient not able to obtain MRA of the head. No acute abnormality or flow-limiting stenosis in the remainder of the major arteries of the head. 50% focal stenosis in the proximal right internal carotid artery. 30% focal stenosis in the proximal left internal carotid artery. Reticulonodular changes in the right upper lobe, may be related minimal pulmonary vascular congestion versus infection/inflammation. Results were reported to Dr. Bobby at 12:03 p.m. on November 02, 2018. D/ / Piter Marion MD / Piter Marion MD Interpreting Provider: Piter Marion MD - EKG Data EKG attestation: Yes I reviewed and interpreted this EKG. EKG results narrative: Normal sinus rhythm at a rate of 95. AK interval is 162. QRS duration is 80. QT is 320. QTC is 43. No signs of acute ischemia. Good R-wave progression. No signs of WPW or Brugada. Previous EKG dated 10/20/2018 shows no significant changes. TPA Checklist - LKW: 3-4.5 hrs Add. Warnings/Precautions Patient/family understanding: The patient/family members have been counseled and understood the risk, benefit, and alternatives of treatment. Critical Care Time Critical Care Time: Yes Total Critical Care Time: 35 Attestation: Critical care time 35 minutes. Attestation Statement - Attestation Attestation: Patient was seen with resident physician. I reviewed the history, physical, assessment and plan, and agree with the findings. I also personally evaluated this patient and had [id number] time with this patient. 62-year-old male presents to the emergency department with a variety of complaints. Patient has a chief complaint of back pain confusion and shortness of breath. He is unclear and shortness of breath is related to the back pain. His confusion started sometime yesterday according to his . Patient says that he does not feel like he is confused, but cannot remember how he got to the hospital. She will he patient has a pain stimulator in his back as well as hardware from previous surgery and he said the pain stimulator is due to be removed tomorrow because is not working effectively. He denies nausea vomiting or diarrhea. No fevers or diaphoresis. Review of systems as above remainder negative. Physical exam vital signs febrile blood pressure and pulse were okay. Pulse ox was low at 93%. ENT unremarkable. Heart regular rhythm and rate. Lungs clear without decreased breath sounds wheezing or rhonchi. Back no step-offs or abnormalities noted on exam. There is no nuchal rigidity. Abdomen soft nontender. Extremities unremarkable. Neurologically with the exception of some confusion and amnesia, exam is unremarkable.. Skin no rashes. Psych patient has somewhat of is tearful affect and is confused.. ED course. We will do variety of concerns considering the patient's confusion, elevated temperature, and back hardware. The causative list of the patient's symptoms is potentially quite long, and a very extensive workup was done to address possible emergencies that we could treat. Dissection study CT scans with carotid duplex as well as consultation with interventional radiology for possible lumbar puncture all were done. Patient was given medication to help control his fever. Spoke with the radiologist said it was a clean tap. He is glad that he had fluoroscopy to help guide he said were then difficulty otherw ise. Throughout his stay patient was also given Narcan prior to getting the LP. The goal was to try and improve his mental status and see if the narcotics are causing his confusion. He actually did wake up quite a bit with that. Eventually came down at baseline. He had some vomiting associated with it but responded well to Zofran. He was also hydrated started on IV antibiotics and treated along the sepsis protocol. Once workup is complete patient will either be admitted. We spoke with the hospitalist service agreed to accept the patient for admission. Critical care time for this patient was 35 minutes. ED procedures.I reviewed the patient's EKG as well as the resident physician interpretation and I agree with the findings.
[2018-11-02] MEDS ORDERED: Ampicillin 2 GM in 0.9 % Sodium Chloride Mini Bag 100 ML IVPB ONE (10:39)
[2018-11-02] MEDS ORDERED: cefTRIAXone 2,000 MG in Water for inj. (sterile) 20 ML IVP ONE (10:39)
[2018-11-02] MEDS ORDERED: Dexamethasone 10 MG/ML VIAL IVP ONE (10:39)
[2018-11-02] MEDS: 0.9 % Sodium Chloride 1,000 ML IVC SCH ×3 (10:53→18:04)
[2018-11-02 11:01] LABS: Bilirubin,Urine Negative (Negative); Blood,Urine Negative (Negative); Clarity,Urine Clear (Clear); Color,Urine Yellow (Yellow); Glucose,Urine (UA) Normal (Normal); Ketones,Urine Negative (Negative); Leukocyte Esterase,Urine Negative (Negative); Nitrite,Urine Negative (Negative); PH,Urine 5.5 pH Units (5.0-8.0); Protein,Urine Negative (Neg-Trace); Specific Gravity,Urine 1.018 (1.010-1.025); Urobilinogen,Urine Normal (Normal)
[2018-11-02 11:01] LABS: Basophils % 0.2 %; Eosinophils # 0.1 K/mcL (0.0-0.6); Eosinophils % 0.5 %; Hematocrit 40.1 % (37.5-50.1); Hemoglobin 13.5 g/dL (12.9-16.9); Immature Granulocytes % 0.4 % (0-4); Lymphocytes # 1.4 K/mcL (0.6-4.6); Lymphocytes % 7.9 %; Mean Corpuscular HGB Conc 33.7 g/dL (31.6-35.5); Mean Corpuscular Hemoglobin 30.8 pg (28.0-33.3); Mean Corpuscular Volume 91.6 fL (83.0-100.0); Mean Platelet Volume 8.8 fL (9.4-12.4); Monocytes # 1.5 K/mcL (0.0-1.3); Monocytes % 8.9 %; Platelet Count 265 K/mcL (140-400); Red Blood Count 4.38 M/mcL (4.19-5.50); Red Cell Distribution Width 13.1 % (11.5-14.5); Segmented Neutrophils % 82.1 %; White Blood Count 17.1 K/mcL (4.3-11.1)
[2018-11-02 11:14] LABS: Amphetamine Screen,Urine Negative ng/mL (Cutoff=1000); Barbiturate Screen,Urine Negative ng/mL (Cutoff=200); Benzodiazepines Screen,Urine Negative ng/mL (Cutoff=200); Cannabinoid Screen,Urine Negative ng/mL (Cutoff = 50); Cocaine Screen,Urine Negative ng/mL (Cutoff= 300); Opiate Screen,Urine Positive ng/mL (Cutoff=300); Phencyclidine Screen,Urine Negative ng/mL (Cutoff=25)
[2018-11-02 11:15] LABS: Alanine Aminotransferase 23 Units/L (7-52); Albumin 4.6 g/dL (3.5-5.7); Albumin/Globulin Ratio 1.5 (1.1-2.2); Alkaline Phosphatase 63 Units/L (34-104); Amylase 52 Units/L (29-103); Aspartate Amino Transferase 23 Units/L (13-39); BUN/Creatinine Ratio 24 (6-26); Bilirubin,Direct 0.1 mg/dL (0.0-0.2); Bilirubin,Indirect 0.6 mg/dL (0.0-1.2); Bilirubin,Total 0.7 mg/dL (0.3-1.0); Blood Urea Nitrogen 32 mg/dL (8-23); Calcium 9.4 mg/dL (8.6-10.3); Carbon Dioxide 23 mEq/L (23-29); Chloride 105 mEq/L (98-107); Creatine Kinase 227 Units/L (30-223); Ethanol < 10 mg/dL (Less than 10); Glucose 125 mg/dL (70-105); Lipase 21 Units/L (11-82); Magnesium 2.2 mg/dL (1.6-2.6); Osmolality,Calculated 292 (280-300); Phosphorous 2.8 mg/dL (2.7-4.5); Potassium 5.4 mEq/L (3.5-5.1); Sodium 137 mEq/L (136-145); Total Protein 7.6 g/dL (6.4-8.9); Troponin I < 0.03 ng/mL (< 0.04); eGFR For African Americans > 60 (> 60); eGFR For Non-African Americans 54 (> 60)
[2018-11-02] MEDS ORDERED: Ondansetron 4 MG/2 ML VIAL IVP ONE (11:23)
[2018-11-02] MEDS ORDERED: Ondansetron 4 MG/2 ML VIAL ONE (11:24)
[2018-11-02 11:29] LABS: Thyroid Stimulating Hormone 0.224 mcIU/mL (0.340-5.600)
[2018-11-02 11:34] LABS: Prothrombin Time 11.4 Seconds (9.4-12.1)
[2018-11-02 11:36] LABS: Activated Partial Thrombo Time 33.6 Seconds (26.0-36.0)
[2018-11-02 14:58] LABS: Appearance,CSF Clear (Clear); Red Blood Cell,CSF < 0.002 M/mcL
[2018-11-02 15:55] LABS: Glucose,CSF 70 mg/dL (40-70); Total Protein,CSF 82 mg/dL (15-45)
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
[2018-11-02] MEDS ORDERED: Ondansetron ODT 4 MG TAB.RAPDIS SL PRN (17:40)
[2018-11-02] MEDS ORDERED: Naloxone 0.4 MG/ML INJ IVP PRN (17:40)
[2018-11-02] MEDS ORDERED: Acetaminophen 325 MG TABLET PO PRN (17:40)
[2018-11-02 18:32] LABS: C-Reactive Protein 30 mg/L (Less than 10)
[2018-11-02] MEDS: *HR* HYDROcodone/Acet 5/325 mg TABLET PO PRN (22:02)
[2018-11-03] LABS: Adenovirus Not Detected (Not Detect); Bordetella Pertussis Not Detected (Not Detect); Chlamydophila pneumoniae Not Detected (Not Detect); Coronavirus 229E Not Detected (Not Detect); Coronavirus HKU1 Not Detected (Not Detect); Coronavirus NL63 Not Detected (Not Detect); Coronavirus OC43 Not Detected (Not Detect); Human Metapneumovirus Not Detected (Not Detect); Human Rhinovirus/Enterovirus Not Detected (Not Detect); Influenza A Subtype 2009 H1 Not Detected (Not Detect); Influenza A Untypeable Not Detected (Not Detect); Influenza B Not Detected (Not Detect); Mycoplasma pneumoniae Not Detected (Not Detect); Parainfluenza Virus 1 Not Detected (Not Detect); Parainfluenza Virus 2 Not Detected (Not Detect); Parainfluenza Virus 3 Not Detected (Not Detect); Parainfluenza Virus 4 Not Detected (Not Detect); Respiratory Syncytial Virus Not Detected (Not Detect)
[2018-11-03] MEDS: *HR* HYDROcodone/Acet 5/325 mg TABLET PO PRN (03:17)
[2018-11-03 05:02] LABS: Basophils % 0.1 %; Hematocrit 35.6 % (37.5-50.1); Immature Granulocytes % 0.7 % (0-4); Lymphocytes # 1.3 K/mcL (0.6-4.6); Mean Corpuscular HGB Conc 33.1 g/dL (31.6-35.5); Mean Corpuscular Hemoglobin 30.4 pg (28.0-33.3); Mean Corpuscular Volume 91.8 fL (83.0-100.0); Mean Platelet Volume 9.1 fL (9.4-12.4); Monocytes % 5.9 %; Platelet Count 253 K/mcL (140-400); Red Blood Count 3.88 M/mcL (4.19-5.50); Segmented Neutrophils % 85.3 %; White Blood Count 16.4 K/mcL (4.3-11.1)
[2018-11-03 05:03] LABS: Hemoglobin 11.8 g/dL (12.9-16.9)
[2018-11-03 05:25] LABS: BUN/Creatinine Ratio 22 (6-26); Blood Urea Nitrogen 25 mg/dL (8-23); Carbon Dioxide 23 mEq/L (23-29); Chloride 106 mEq/L (98-107); Glucose 187 mg/dL (70-105); Osmolality,Calculated 297 (280-300); Potassium 4.6 mEq/L (3.5-5.1); Sodium 139 mEq/L (136-145); eGFR For African Americans > 60 (> 60); eGFR For Non-African Americans > 60 (> 60)
[2018-11-03 05:41] LABS: Triiodothyronine (T3) Free 3.16 pg/mL (2.50-3.90)
[2018-11-03] MEDS: *HR* Heparin 5,000 UNIT/ML VIAL SQ SCH ×2 (05:55→17:14)
[2018-11-03] MEDS: 0.9 % Sodium Chloride 1,000 ML IVC SCH (07:20)
--- NOTE | 2018-11-03 07:50 | Internal Med Progress Note ---
Hospitalist Progress Note - Encounter Date of Encounter: 11/03/18 Time of Encounter: 10:00 - Subjective Interval History: No acute events overnight - Exam Vitals: Temp Pulse Resp BP Pulse Ox 98.1 F 68 16 147/67 93 11/03/18 07:42 11/03/18 07:42 11/03/18 07:42 11/03/18 07:42 11/03/18 04:32 Exam: Gen. NAD CVS. S1 S2 WNL Resp. CTAB GI. 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 Pt's confusion and fever was likely pneumonia Continue antibiotics with zosyn. Follow cultures (2) Lumbar radiculitis Current Visit: Yes Status: Chronic Assessment and Plan: Pain consulted for management of spinal stimulator (3) Leukocytosis Current Visit: Yes Status: Acute Assessment and Plan: Leukocytosis likely secondary to pneumonia Continue antibiotics with zosyn. Follow cultures. (4) Acute kidney injury Current Visit: Yes Status: Acute Assessment and Plan: Acute kidney injury likely secondar to dehydration Improved with IV fluids (5) Hyperkalemia Current Visit: Yes Status: Acute Assessment and Plan: Resolved (6) Low TSH level Current Visit: Yes Status: Acute Assessment and Plan: Free T 4 levels and Free T 3 levels WNL DVT Prophylaxis: Heparin sc - Time Spent with Patient Total time spent is greater than 50% in coordination of care (as documented) at patient's floor/unit and/or counseling patient: Internal Medicine: Result - Labs CBC & Chem 7: 11/03/18 04:26 11/03/18 04:26 Labs: Short CBC 11/02/18 11/03/18 Range/Units 10:40 04:26 WBC 17.1 H 16.4 H (4.3-11.1) K/mcL Hgb 13.5 11.8 L D (12.9-16.9) g/dL Hct 40.1 35.6 L (37.5-50.1) % Plt Count 265 253 (140-400) K/mcL Neutrophils # 14.0 H 14.0 H (1.6-8.9) K/mcL BMP 11/02/18 11/02/18 11/03/18 00:03 10:40 04:26 Sodium 137 139 Potassium 4.8 5.4 H 4.6 Chloride 105 106 Carbon Dioxide 23 23 BUN 32 H 25 H Creatinine 1.35 H 1.16 Glucose 125 H 187 H Calcium 9.4 9.0 Cardiac Enzymes 11/02/18 Range/Units 10:40 Troponin I < 0.03 (< 0.04) ng/mL Liver Function 11/02/18 Range/Units 10:40 Total Bilirubin 0.7 (0.3-1.0) mg/dL Direct Bilirubin 0.1 (0.0-0.2) mg/dL AST 23 (13-39) Units/L ALT 23 (7-52) Units/L Alkaline Phosphatase 63 (34-104) Units/L Albumin 4.6 (3.5-5.7) g/dL Urine 11/02/18 Range/Units 10:50 Urine Color Yellow (Yellow) Urine Clarity Clear (Clear) Urine pH 5.5 (5.0-8.0) pH Units Ur Specific [place] 1.018 (1.010-1.025) Urine Protein Negative (Neg-Trace) mg/dL Urine Glucose (UA) Normal (Normal) mg/dL - ABG Interpretation ABG results: PT/INR, D-dimer PT 11.4 Seconds (9.4-12.1) 11/02/18 10:40 - Impressions Impressions CT Dissection 11/02/18 10:34 IMPRESSION: No acute aortic abnormality. Basilar predominant airspace disease including ground-glass opacity, not well characterized due to obscuration by motion artifact. Findings could represent pneumonia or edema. Moderate fatty infiltration of the liver D/ / Marzena Mcghee Cha, MD / Marzena Mcghee Cha, MD Interpreting Provider: Marzena Mcghee Cha, MD Angiography CT 11/02/18 10:35 IMPRESSION: No acute intracranial abnormality. Question of asymmetrically decreased contrast opacification in distal cavernous segment of the right internal carotid artery, with patent supraclinoid segment. Findings may be related to artifacts. Focal nonocclusive thrombus in the distal right cavernous internal carotid artery cannot be excluded. Repeat CTA of the head may be beneficial if the patient not able to obtain MRA of the head. No acute abnormality or flow-limiting stenosis in the remainder of the major arteries of the head. 50% focal stenosis in the proximal right internal carotid artery. 30% focal stenosis in the proximal left internal carotid artery. Reticulonodular changes in the right upper lobe, may be related minimal pulmonary vascular congestion versus infection/inflammation. Results were reported to Dr. Bobby at 12:03 p.m. on November 02, 2018. D/ / Piter Marion MD / Piter Marion MD Interpreting Provider: Piter Marion MD Neck CTA 11/02/18 10:35 IMPRESSION: No acute intracranial abnormality. Question of asymmetrically decreased contrast opacification in distal cavernous segment of the right internal carotid artery, with patent supraclinoid segment. Findings may be related to artifacts. Focal nonocclusive thrombus in the distal right cavernous internal carotid artery cannot be excluded. Repeat CTA of the head may be beneficial if the patient not able to obtain MRA of the head. No acute abnormality or flow-limiting stenosis in the remainder of the major arteries of the head. 50% focal stenosis in the proximal right internal carotid artery. 30% focal stenosis in the proximal left internal carotid artery. Reticulonodular changes in the right upper lobe, may be related minimal pulmonary vascular congestion versus infection/inflammation. Results were reported to Dr. Bobby at 12:03 p.m. on November 02, 2018. D/ / Piter Marion MD / Piter Marion MD Interpreting Provider: Piter Marion MD Lumbar Puncture Fluoroscopy 11/02/18 13:08 IMPRESSION: Successful fluoroscopic-guided lumbar puncture. D/ / Jorge Laughlin MD / Jorge Laughlin MD Interpreting Provider: Jorge Laughlin MD Consult Discharge Plan - Plan Referrals: Cliff Painting DO [Primary Care Provider] - __ (1) Pneumonia Qualifiers: Pneumonia type: due to unspecified organism Laterality: bilateral Lung location: lower lobe of lung Qualified Code(s): J18.1 - Lobar pneumonia, unspecified organism (3) Leukocytosis Qualifiers: Leukocytosis type: unspecified Qualified Code(s): D72.829 - Elevated white blood cell count, unspecified
[2018-11-03] MEDS: *HR* OxyCODONE/APAP 5/325 TABLET PO PRN ×2 (09:16→16:58)
[2018-11-03] MEDS ORDERED: Isovue-370 500 ML BOTTLE IVP ONE (15:22)
[2018-11-03] MEDS ORDERED: MethylPREDNISolone 40 MG/ML VIAL IVP ONE (17:10)
[2018-11-03] MEDS: *HR* OxyCODONE/APAP 10/325 TABLET PO PRN (22:52)
[2018-11-04] MEDS ORDERED: MethylPREDNISolone 40 MG/ML VIAL IVP ONE (03:00)
[2018-11-04] MEDS: *HR* OxyCODONE/APAP 10/325 TABLET PO PRN (06:12)
[2018-11-04] MEDS: *HR* Heparin 5,000 UNIT/ML VIAL SQ SCH (06:13)
[2018-11-04 06:35] LABS: Basophils % 0.1 %; Hematocrit 36.2 % (37.5-50.1); Hemoglobin 12.2 g/dL (12.9-16.9); Immature Granulocytes % 0.9 % (0-4); Lymphocytes # 1.4 K/mcL (0.6-4.6); Lymphocytes % 8.1 %; Mean Corpuscular HGB Conc 33.7 g/dL (31.6-35.5); Mean Corpuscular Hemoglobin 30.7 pg (28.0-33.3); Mean Corpuscular Volume 91.2 fL (83.0-100.0); Mean Platelet Volume 9.5 fL (9.4-12.4); Monocytes # 0.7 K/mcL (0.0-1.3); Monocytes % 3.9 %; Neutrophils # 14.7 K/mcL (1.6-8.9); Platelet Count 287 K/mcL (140-400); Red Blood Count 3.97 M/mcL (4.19-5.50); White Blood Count 16.9 K/mcL (4.3-11.1)
[2018-11-04 06:56] LABS: BUN/Creatinine Ratio 18 (6-26); Blood Urea Nitrogen 19 mg/dL (8-23); Calcium 9.2 mg/dL (8.6-10.3); Carbon Dioxide 24 mEq/L (23-29); Chloride 107 mEq/L (98-107); Glucose 153 mg/dL (70-105); Osmolality,Calculated 299 (280-300); Potassium 4.4 mEq/L (3.5-5.1); Sodium 142 mEq/L (136-145); eGFR For African Americans > 60 (> 60); eGFR For Non-African Americans > 60 (> 60)
[2018-11-04 07:11] VITALS: BP 162/66
[2018-11-04] MEDS ORDERED: Isovue-370 500 ML BOTTLE IVP ONE (07:43)
--- NOTE | 2018-11-04 10:48 | Discharge Summary ---
Date of Encounter: 11/04/18 Time of Encounter: 15:00 - Discharge Diagnosis (1) Pneumonia Priority: Primary Status: Acute Assessment and Plan: 62 year old male with past medical history of chronic back pain, lumbar radiculitis, several abdominal surgeries including hernia, s/p spinal stimulator implant 2018, HTN, who presents with altered mental status and confusion. Pt's at bedside. Pt's states pt had been acting "strange". states he was falling asleep in standing position. He went and sat in his car with out the keys and was confused about why or what he was doing.Pt stated to ED staff that he was unawar e of how he got to the hospital. He was assessed with acute metabolic encephalopathy 2/2 sepsis from community acquired pneumonia. Meningitis was intially suspected but he had an LP done CSF studies not suggestive of meningitis. Chest xray showed pneumonia and patient improved on broad spectrum antibiotics with vanc and zosyn. Initial CTA head showed possible internal carotid artery thrombus but repeat CTA head was negative With a sooner than anticipated recovery, he was discharged on a course of levaquin. 35 minutes was spent discharging this patient Qualifiers: Pneumonia type: due to unspecified organism Laterality: bilateral Lung location: lower lobe of lung Qualified Code(s): J18.1 - Lobar pneumonia, unspecified organism (2) Lumbar radiculitis Priority: Primary Status: Chronic (3) Leukocytosis Priority: Primary Status: Acute Qualifiers: Leukocytosis type: unspecified Qualified Code(s): D72.829 - Elevated white blood cell count, unspecified (4) Acute kidney injury Priority: Primary Status: Acute (5) Hyperkalemia Priority: Primary Status: Acute (6) Low TSH level Priority: Primary Status: Acute Hospital course: Mr. Mendez is a 62 year old male - Time Spent with Patient Total time spent providing and/or coordinating discharge services: - Discharge Medications Prescriptions: New levoFLOXacin [Levaquin] 750 mg PO DAILY 5 Days #5 tablet Continued amLODIPine [Norvasc] 5 mg PO DAILY Oxycodone HCl/Acetaminophen [Percocet 10-325 mg Tablet] 1 tab PO Q6H PRN PRN Reason: Pain DULoxetine [Cymbalta] 30 mg PO DAILY Aspirin [Lo-Dose Aspirin EC] 81 mg PO DAILY BuPROPion [Wellbutrin] 75 mg PO BID Carvedilol [Coreg] 25 mg PO BID Isosorbide MONOnitrate [Isosorbide Mononitrate ER] 30 mg PO DAILY Lisinopril [Zestril] 40 mg PO DAILY Simvastatin [Zocor] 40 mg PO HS Tizanidine HCl 4 mg PO TID PRN PRN Reason: Muscle Spasm Home Medications: Oxycodone HCl/Acetaminophen [Percocet 10-325 mg Tablet] 1 tab PO Q6H PRN 06/23/17 [History] amLODIPine [Norvasc] 5 mg PO DAILY 06/23/17 [History] DULoxetine [Cymbalta] 30 mg PO DAILY 06/03/18 [History] Aspirin [Lo-Dose Aspirin EC] 81 mg PO DAILY 11/02/18 [History] BuPROPion [Wellbutrin] 75 mg PO BID 11/02/18 [History] Carvedilol [Coreg] 25 mg PO BID 11/02/18 [History] Isosorbide MONOnitrate [Isosorbide Mononitrate ER] 30 mg PO DAILY 11/02/18 [History] Lisinopril [Zestril] 40 mg PO DAILY 11/02/18 [History] Simvastatin [Zocor] 40 mg PO HS 11/02/18 [History] Tizanidine HCl 4 mg PO TID PRN 11/02/18 [History] levoFLOXacin [Levaquin] 750 mg PO DAILY 5 Days #5 tablet 11/04/18 [Rx] Allergies/Adverse Reactions: Allergy/AdvReac Type Severity Reaction Status Date / Time iodine AdvReac Itching Verified 11/02/18 12:57 shellfish derived AdvReac Tongue Verified 11/02/18 12:57 itching Sulfa (Sulfonamide AdvReac Itching Verified 11/02/18 12:57 Antibiotics) sulfamethoxazole AdvReac Itching Verified 11/02/18 12:57 [From Bactrim] trimethoprim [From Bactrim] AdvReac Itching Verified 11/02/18 12:57 Date of admission: 11/02/18 14:57 Primary care physician: Cliff Painting DO Consults: 11/02/18 12:57 Consult to Interventional Radiology [CONS] Stat Consulting Provider: Radiology Interventional [place] Reason for Consult: lp Call Completed: No 11/02/18 17:49 Consult to Pain Management [CONS] Routine Consulting Provider: Pain Mgt Interventional [place] Reason for Consult: spinal stimulator removal. Dr. Colon Call Completed: Yes - Constitutional Vitals: Temp Pulse Resp BP Pulse Ox 99.0 F 60 18 162/66 97 11/04/18 07:08 11/04/18 07:08 11/04/18 07:08 11/04/18 07:08 11/04/18 04:50 General appearance: Present: A&O X 3, no acute distress Exam: Gen. NAD CVS. S1 S2 WNL Resp. CTAB GI. 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
--- NOTE | 2018-11-04 13:23 | Electrocardiograph Report ---
[facility] Test Date: 2018-11-02 Pat Name: Roc Mendez Department: [id number] Room: 2NE21 Gender: M Rotary Helper: : [id number] Requested By: Dina Paul Order Number: [id number] Reading MD: Varun Wylie Measurements Intervals [place] Rate: 95 P: 26 [place]: 162 QRS: 64 QRSD: 88 T: 32 QT: 320 QTc: 403 Interpretive Statements Sinus rhythm Probable left atrial enlargement ST elevation, consider anterolateral injury, correlate clinically, present 10/20/18 Electronically Signed On 11-04-2018 13:21:48 EDT by Varun Wylie
== END 2018-11-04 12:28 | disposition home or self-care (01) | DRG 871 ==
LOC: EMEROOARM 10:15 → 2NENU 14:57
PROVIDERS: ADMIT Internal Medicine Nephrology; ATTEND Internal Medicine Nephrology

== ENCOUNTER 2021-09-24 06:52 | Inpatient (IN) ==
[2021-09-24] MEDS ORDERED: Ondansetron 4 MG/2 ML VIAL IVP ONE (07:32)
[2021-09-24] MEDS ORDERED: *HR* HYDROmorphone (PF) 1 MG/ML SYRINGE IVP ONE ×2 (07:32→08:44)
[2021-09-24] MEDS ORDERED: diazePAM 10 MG/2 ML SYRINGE IVP ONE ×2 (07:32→08:44)
[2021-09-24 08:00] LABS: Bilirubin,Urine Negative (Negative); Blood,Urine Small (Negative); Clarity,Urine Clear (Clear); Color,Urine Light-Yellow (Yellow); Glucose,Urine (UA) 200 mg/dL (Normal); Ketones,Urine Negative (Negative); Leukocyte Esterase,Urine Negative (Negative); Nitrite,Urine Negative (Negative); Protein,Urine Trace mg/dL (Neg-Trace); RBC,Urine 15-30 per hpf (0-3); Specific Gravity,Urine 1.018 (1.010-1.025); Urobilinogen,Urine Normal (Normal)
[2021-09-24 08:22] LABS: Hemoglobin 11.9 g/dL (12.9-16.9); Nucleated Red Blood Cells 0.6 /100 WBC (0)
[2021-09-24 08:23] LABS: Hematocrit 36.4 % (37.5-50.1); Mean Corpuscular HGB Conc 32.7 g/dL (31.6-35.5); Mean Corpuscular Hemoglobin 30.7 pg (28.0-33.3); Mean Corpuscular Volume 94.1 fL (83.0-100.0); Mean Platelet Volume 9.3 fL (9.4-12.4); Platelet Count 198 K/mcL (140-400); Red Blood Count 3.87 M/mcL (4.19-5.50); Red Cell Distribution Width 15.6 % (11.5-14.5)
[2021-09-24 08:32] LABS: White Blood Count 43.2 K/mcL (4.3-11.1)
[2021-09-24 08:36] LABS: Albumin 4.4 g/dL (3.5-5.7); Albumin/Globulin Ratio 1.7 (1.1-2.2); Bilirubin,Total 0.4 mg/dL (0.3-1.0); Calcium 9.3 mg/dL (8.6-10.3); Globulin 2.6 g/dL (2.4-3.5); Potassium 5.5 mEq/L (3.5-5.1)
[2021-09-24 08:41] LABS: Eosinophils # 0.9 K/mcL (0.0-0.6); Lymphocytes # 8.6 K/mcL (0.6-4.6); Monocytes # 5.2 K/mcL (0.0-1.3); Neutrophils # 28.5 K/mcL (1.6-8.9); Platelet Estimate Normal (Normal)
[2021-09-24] MEDS ORDERED: 0.9 % Sodium Chloride 1,000 ML IVC ONE (08:47)
[2021-09-24] MEDS ORDERED: cefTRIAXone 2,000 MG in 0.9 % Sodium Chloride 20 ML IVP ONE (09:27)
[2021-09-24] MEDS ORDERED: Morphine Sulfate 2 MG/ML SYRINGE IVP ONE (10:14)
[2021-09-24] MEDS ORDERED: *HR* OxyCODONE Immed Rel 5 MG TABLET PO ONE (10:14)
[2021-09-24] MEDS ORDERED: Ondansetron 4 MG/2 ML VIAL IVP PRN ×2 (10:20→18:17)
[2021-09-24] MEDS ORDERED: Naloxone 0.4 MG/ML INJ IVP PRN ×2 (10:20→18:17)
[2021-09-24] MEDS ORDERED: *HR* HYDROmorphone 2 MG/ML SYRINGE IVP PRN (10:27)
[2021-09-24] MEDS ORDERED: *HR* OxyCODONE Immed Rel 5 MG TABLET PO PRN (10:28)
[2021-09-24] MEDS ORDERED: 0.9 % Sodium Chloride 1,000 ML IVC SCH (10:45)
[2021-09-24] MEDS ORDERED: *HR* Dextrose 50 % in Water (Syg) 50 ML SYRINGE IVP ONE (12:11)
[2021-09-24] MEDS ORDERED: Insulin Human Regular 10 UNIT in 0.9 % Sodium Chloride 10 ML IV ONE (12:11)
[2021-09-24] MEDS ORDERED: *HR* Labetalol 20 MG/4 ML SYRINGE IVP ONE (16:06)
[2021-09-24] MEDS ORDERED: *HR* FentaNYL (PF) 100 MCG/2 ML VIAL ONE ×2 (16:31→17:27)
[2021-09-24] MEDS ORDERED: Ondansetron 4 MG/2 ML VIAL ONE (16:31)
[2021-09-24] MEDS ORDERED: *HR* Propofol 200 MG/20 ML VIAL IVP ONE (16:31)
[2021-09-24] MEDS ORDERED: Lidocaine -MPF 2% 2 ML VIAL ONE (16:33)
[2021-09-24] MEDS ORDERED: *HR* HYDROmorphone PF 0.5 MG/0.5 ML SYRINGE IVP PRN (16:40)
[2021-09-24] MEDS ORDERED: Isovue-300 50ML VIAL ONE (16:51)
[2021-09-24] MEDS ORDERED: *HR* HYDROmorphone (PF) 1 MG/ML SYRINGE IVP PRN (18:17)
[2021-09-24] MEDS: carvediloL 25 MG TABLET PO SCH (18:42)
[2021-09-24] MEDS: 0.9 % Sodium Chloride 1,000 ML IVC SCH (18:42)
[2021-09-24] MEDS ORDERED: carvediloL 25 MG TABLET PO SCH (21:00)
[2021-09-24] MEDS: *HR* OxyCODONE Immed Rel 5 MG TABLET PO PRN (23:28)
[2021-09-25] MEDS: *HR* OxyCODONE Immed Rel 5 MG TABLET PO PRN ×3 (04:15→18:43)
[2021-09-25] MEDS: 0.9 % Sodium Chloride 1,000 ML IVC SCH (04:16)
[2021-09-25 06:55] LABS: Hematocrit 36.6 % (37.5-50.1); Hemoglobin 11.8 g/dL (12.9-16.9); Mean Corpuscular HGB Conc 32.2 g/dL (31.6-35.5); Mean Corpuscular Hemoglobin 31.1 pg (28.0-33.3); Mean Corpuscular Volume 96.3 fL (83.0-100.0); Mean Platelet Volume 9.6 fL (9.4-12.4); Nucleated Red Blood Cells 0.2 /100 WBC (0); Platelet Count 192 K/mcL (140-400); Red Cell Distribution Width 15.9 % (11.5-14.5)
[2021-09-25 07:15] LABS: Calcium 9.1 mg/dL (8.6-10.3); Magnesium 2.2 mg/dL (1.6-2.6); Potassium 5.8 mEq/L (3.5-5.1)
[2021-09-25] MEDS ORDERED: tiZANidine 4 MG TABLET PO PRN (07:37)
[2021-09-25] MEDS: Isosorbide MONOnitrate (24 HR) 30 MG TAB.ER.24H PO SCH (08:08)
[2021-09-25] MEDS: Aspirin Enteric Coated 81 MG Tablet PO SCH (08:08)
[2021-09-25] MEDS: carvediloL 25 MG TABLET PO SCH ×2 (08:08→16:15)
[2021-09-25] MEDS: FLUoxetine 20 MG CAPSULE PO SCH (08:08)
[2021-09-25] MEDS: Gabapentin 300 MG CAPSULE PO SCH ×3 (08:08→19:40)
[2021-09-25] MEDS: amLODIPine 5 MG TABLET PO SCH (08:09)
[2021-09-25] MEDS: cefTRIAXone 2,000 MG in 0.9 % Sodium Chloride 20 ML IVPB SCH (08:10)
[2021-09-25 08:30] LABS: Platelet Estimate Normal (Normal); Reactive Lymphocytes Present (Not Present)
[2021-09-25] MEDS ORDERED: cefTRIAXone 2,000 MG in 0.9 % Sodium Chloride Mini Bag 100 ML IVPB SCH (09:00)
[2021-09-25] MEDS ORDERED: lisinopriL 20 MG TABLET PO SCH (09:00)
[2021-09-26 02:23] LABS: Hemoglobin 10.3 g/dL (12.9-16.9); Mean Corpuscular Volume 95.8 fL (83.0-100.0); Nucleated Red Blood Cells 0.6 /100 WBC (0); Red Cell Distribution Width 16.1 % (11.5-14.5)
[2021-09-26 02:25] LABS: Mean Corpuscular HGB Conc 32.2 g/dL (31.6-35.5); Mean Corpuscular Hemoglobin 30.8 pg (28.0-33.3); Mean Platelet Volume 9.6 fL (9.4-12.4); Platelet Count 196 K/mcL (140-400); Red Blood Count 3.34 M/mcL (4.19-5.50)
[2021-09-26 02:35] LABS: BUN/Creatinine Ratio 18 (6-26); Blood Urea Nitrogen 25 mg/dL (8-23); Calcium 8.9 mg/dL (8.6-10.3); Carbon Dioxide 25 mEq/L (23-29); Chloride 106 mEq/L (98-107); Glucose 93 mg/dL (70-105); Osmolality,Calculated 290 (280-300); Potassium 4.5 mEq/L (3.5-5.1); Sodium 138 mEq/L (136-145); eGFR For African Americans > 60 (> 60); eGFR For Non-African Americans 51 (> 60)
[2021-09-26 02:37] LABS: White Blood Count 68.6 K/mcL (4.3-11.1)
[2021-09-26 03:08] LABS: Lymphocytes # 4.1 K/mcL (0.6-4.6); Monocytes # 1.4 K/mcL (0.0-1.3); Neutrophils # 61.7 K/mcL (1.6-8.9); Platelet Estimate Normal (Normal)
[2021-09-26] MEDS: Isosorbide MONOnitrate (24 HR) 30 MG TAB.ER.24H PO SCH (07:20)
[2021-09-26] MEDS: Gabapentin 300 MG CAPSULE PO SCH ×3 (07:20→20:16)
[2021-09-26] MEDS: *HR* OxyCODONE Immed Rel 5 MG TABLET PO PRN (07:20)
[2021-09-26] MEDS: Aspirin Enteric Coated 81 MG Tablet PO SCH (07:20)
[2021-09-26] MEDS: amLODIPine 5 MG TABLET PO SCH (07:21)
[2021-09-26] MEDS: FLUoxetine 20 MG CAPSULE PO SCH (07:21)
[2021-09-26] MEDS: carvediloL 25 MG TABLET PO SCH ×2 (07:21→16:49)
[2021-09-26] MEDS: cefTRIAXone 2,000 MG in 0.9 % Sodium Chloride 20 ML IVPB SCH (07:22)
[2021-09-26] MEDS ORDERED: 0.9 % Sodium Chloride 1,000 ML IVC SCH (10:00)
[2021-09-27 01:30] LABS: Mean Platelet Volume 9.4 fL (9.4-12.4)
[2021-09-27 01:32] LABS: Hematocrit 32.9 % (37.5-50.1); Hemoglobin 10.7 g/dL (12.9-16.9); Mean Corpuscular HGB Conc 32.5 g/dL (31.6-35.5); Mean Corpuscular Hemoglobin 31.4 pg (28.0-33.3); Mean Corpuscular Volume 96.5 fL (83.0-100.0); Nucleated Red Blood Cells 1.2 /100 WBC (0); Platelet Count 202 K/mcL (140-400); Red Blood Count 3.41 M/mcL (4.19-5.50); Red Cell Distribution Width 16.1 % (11.5-14.5)
[2021-09-27 01:51] LABS: BUN/Creatinine Ratio 22 (6-26); Blood Urea Nitrogen 27 mg/dL (8-23); Calcium 9.2 mg/dL (8.6-10.3); Carbon Dioxide 25 mEq/L (23-29); Chloride 106 mEq/L (98-107); Glucose 101 mg/dL (70-105); Osmolality,Calculated 291 (280-300); Potassium 4.5 mEq/L (3.5-5.1); Sodium 138 mEq/L (136-145); eGFR For African Americans > 60 (> 60); eGFR For Non-African Americans 59 (> 60)
[2021-09-27 01:54] LABS: White Blood Count 55.9 K/mcL (4.3-11.1)
[2021-09-27 01:56] LABS: Lymphocytes # 3.4 K/mcL (0.6-4.6); Monocytes # 2.2 K/mcL (0.0-1.3); Neutrophils # 45.8 K/mcL (1.6-8.9); Platelet Estimate Normal (Normal); Polychromasia 1+ (Not Present)
[2021-09-27] MEDS: Gabapentin 300 MG CAPSULE PO SCH ×2 (07:58→14:57)
[2021-09-27] MEDS: Isosorbide MONOnitrate (24 HR) 30 MG TAB.ER.24H PO SCH (07:58)
[2021-09-27] MEDS: Aspirin Enteric Coated 81 MG Tablet PO SCH (07:58)
[2021-09-27] MEDS: FLUoxetine 20 MG CAPSULE PO SCH (07:58)
[2021-09-27] MEDS: carvediloL 25 MG TABLET PO SCH (07:58)
[2021-09-27] MEDS: cefTRIAXone 2,000 MG in 0.9 % Sodium Chloride 20 ML IVPB SCH (07:59)
[2021-09-27] MEDS: amLODIPine 5 MG TABLET PO SCH (07:59)
[2021-09-27] MEDS: *HR* OxyCODONE Immed Rel 5 MG TABLET PO PRN ×2 (08:12→14:58)
[2021-09-27 11:30] VITALS: BP 182/78; PULSE 57; TEMP 98.2; O2SAT 94
[2021-09-27 15:21] LABS: Calculi Mass 30 mg
== END 2021-09-27 16:33 | disposition home or self-care (01) | DRG 661 ==
LOC: EMEROOARM 06:52 → 2ANU 06:52 → SUATTDRO 10:35 → 2ANU 11:06
PROVIDERS: ADMIT Pharmacist; ATTEND Internal Medicine